=== PATIENT | female | born 1955 | race Caucasian/White ===

== ENCOUNTER 2018-09-20 17:45 | Emergency (ER) | payer BC ==
[~2018-09-20] VITALS: Wt 56.0 kg
[2018-09-20] MEDS ORDERED: ACET500C5 PO (18:59)
[2018-09-20] MEDS ORDERED: D-ME473S2 PO (18:59)
[2018-09-20] MEDS ORDERED: AMOX500C2 PO (18:59)
[2018-09-20] MEDS ORDERED: ACETAMINOPHEN 325 MG TAB PO ONE (19:00)
--- NOTE | 2018-09-20 19:01 | ERD ---
ER Documentation Chief Complaint Chief Complaint FEVER WITH BODY ACHES/COUGH/SOB X 2 DAYS HPI 63 female with complaints of fever and cough congestion for the last 3 days. Her was treated for bronchitis. She denies history of asthma, chest pain, vomiting, abdominal pain. ROS All systems reviewed and are negative except as per history of present illness. Medications Home Meds Active Scripts Dextromethorphan Hb-Promethazine Hcl* (Promethazine DM* Syrup) 473 Ml Syrup, 5 ML PO Q6 PRN for COUGH for 5 Days, ML Prov:RAFFY DELA CRUZ MD 09/20/18 Acetaminophen* (Tylophen*) 500 Mg Capsule, 1 CAP PO Q6H PRN for PAIN AND OR ELEVATED TEMP, #20 CAP Prov:RAFFY DELA CRUZ MD 09/20/18 Amoxicillin* (Amoxicillin*) 500 Mg Cap, 500 MG PO TID for 10 Days, CAP Prov:RAFYF DELA CRUZ MD 09/20/18 Allergies Allergies: Coded Allergies: azithromycin (Verified Adverse Reaction, Unknown, THROW UP , 01/06/18) PER PATIENT VOMITING AFTER TAKING RX PMhx/Soc History of Surgery: Yes (C SECTION X2) Anesthesia Reaction: No Hx Neurological Disorder: No Hx Respiratory Disorders: No Hx Cardiac Disorders: No Hx Psychiatric Problems: No Hx Miscellaneous Medical Probl: No Hx Alcohol Use: No Hx Substance Use: No Hx Tobacco Use: No Smoking Status: Never smoker FmHx Family History: No diabetes, No coronary disease, No other Physical Exam Vitals Vital Signs Date Temp Pulse Resp B/P (MAP) Pulse Ox O2 O2 Flow FiO2 Time Delivery Rate 09/20/18 100.7 96 18 143/73 100 Room Air 19:24 (96) 09/20/18 101.9 19:12 09/20/18 100.3 100 16 161/77 100 18:14 (105) Physical Exam Const: No acute distress Head: Atraumatic Eyes: Normal Conjunctiva ENT: Normal External Ears, Nose and Mouth. Right TM redness with decreased light reflex. Neck: Full range of motion. No meningismus. Resp: Clear to auscultation bilaterally. Coarse cough with rhonchi without rales, wheezing or retractions. Cardio: Regular rate and rhythm, no murmurs Abd: Soft, non tender, non distended. Normal bowel sounds Skin: No petechiae or rashes Back: No midline or flank tenderness Ext: No cyanosis, or edema Neur: Awake and alert Psych: Normal Mood and Affect Results 24 hrs Current Medications Medications Dose Sig/Leonides Start Time Status Last (Trade) Ordered Route PRN Stop Time Admin Dose Reason Admin 650 mg ONCE ONCE 09/20/18 DC 09/20/18 Acetaminophen PO 19:00 19:12 (Tylenol 09/20/18 19:01 Tab) Procedures/MDM Patient presents with URI symptoms and fever and body aches for last 3 days. She may have a acute viral URI although given the findings on ear exam we will treat with amoxicillin, promethazine DM, Tylenol, primary care follow-up and return precautions. She has no signs of hypoxemia, rest distress or signs of pneumonia on exam. The patient was stable with no new complaints during the ER course. Clinically, there is no current evidence to suggest meningitis, sepsis, acute abdomen, pneumonia, stroke, acute coronary syndrome, pulmonary embolism, aortic dissection or any other emergent condition appearing to require further evaluation or hospitalization. Patient counseled regarding my diagnostic impression and care plan. Prior to discharge all questions answered. Pt agrees with treatment plan and understands strict return precautions. Pt is instructed to follow up with primary care provider within 24-48 hours. Precautionary instructions provided including instructions to return to the ER if not improving or for any worsening or changing symptoms or concerns. Disclaimer: Inadvertent spelling and grammatical errors are likely due to EHR/dictation software use and do not reflect on the overall quality of patient care. Also, please note that the electronic time recorded on this note does not necessarily reflect the actual time of the patient encounter. Departure Diagnosis: Primary Impression: Otitis media Otitis media type: suppurative Chronicity: acute Laterality: right Recurrence: not specified as recurrent Spontaneous tympanic membrane rupture: without spontaneous rupture Qualified Codes: H66.001 - Acute suppurative otitis media without spontaneous rupture of ear drum, right ear Additional Impression: Upper respiratory infection URI type: unspecified URI Qualified Codes: J06.9 - Acute upper respiratory infection, unspecified Condition: Stable Patient Instructions: Bronchitis, Antiobiotic Treatment (Adult), Otitis Media, Abx Tx (Adult) Additional Instructions: Recheck for new or worsening symptoms with primary care doctor. RAFFY DELA CRUZ MD September 20, 2018 19:01
[2018-09-20 19:24] VITALS: BP 143/73; PULSE 96; RESP 18
== END 2018-09-20 19:28 | disposition home or self-care (01) ==
LOC: FTE 17:45
DX: H66.001 Acute suppurative otitis media without spontaneous rupture of ear drum, right ear (principal); J06.9 Acute upper respiratory infection, unspecified
CPT/HCPCS: Z7502; Z7610; 99283

== ENCOUNTER 2018-09-25 18:15 | Inpatient (IN) | payer BC ==
[~2018-09-25] VITALS: Ht 152.4 cm; Wt 49.8 kg
[~2018-09-25 18:15] MED LIST: ACET500C5 PO; AMOX500C2 PO; D-ME473S2 PO
[2018-09-25 18:22] VITALS: Ht 152.4 cm; Wt 49.8 kg
[2018-09-25] MEDS ORDERED: SODIUM CHLORIDE 0.9% 1L BAG IV* STA (18:36)
[2018-09-25] MEDS ORDERED: METHYLPREDNISOLONE 125 MG INJ IV STA (18:38)
[2018-09-25] MEDS ORDERED: ALBUTEROL 0.5% (NEB) 2.5 MG/0.5 ML AMP INH STA (18:38)
--- NOTE | 2018-09-25 18:42 | ERD ---
ER Documentation Chief Complaint Chief Complaint Dx Wednesday with Bronchitis and ear infection, getting worse on ABX HPI This is a 63-year-old woman brought in by family members for continued cough, right earache, fever despite using antibiotics as prescribed on Wednesday after being diagnosed with right otitis media and bronchitis. She states she has been using her antibiotics as prescribed without relief, she denies chest pain or shortness of breath, no calf or leg swelling, no headache or blurry vision, no complaints of neck pain or neck stiffness, no dysuria, no abdominal pain, no vomiting or diarrhea. Patient has right ear pain is nonradiating nonexertional and she denies hearing loss, denies bleeding from the right EAC ROS All systems reviewed and are negative except as per history of present illness. Medications Home Meds Active Scripts Dextromethorphan Hb-Promethazine Hcl* (Promethazine DM* Syrup) 473 Ml Syrup, 5 ML PO Q6 PRN for COUGH for 5 Days, ML Prov:RAFFY DELA CRUZ MD 09/20/18 Acetaminophen* (Tylophen*) 500 Mg Capsule, 1 CAP PO Q6H PRN for PAIN AND OR ELEVATED TEMP, #20 CAP Prov:RAFFY DELA CRUZ MD 09/20/18 Amoxicillin* (Amoxicillin*) 500 Mg Cap, 500 MG PO TID for 10 Days, CAP Prov:RAFFY DELA CRUZ MD 09/20/18 Allergies Allergies: Coded Allergies: azithromycin (Verified Adverse Reaction, Unknown, THROW UP , 01/06/18) PER PATIENT VOMITING AFTER TAKING RX PMhx/Soc History of Surgery: Yes (C SECTION X2) Anesthesia Reaction: No Hx Neurological Disorder: No Hx Respiratory Disorders: No Hx Cardiac Disorders: No Hx Psychiatric Problems: No Hx Miscellaneous Medical Probl: No Hx Alcohol Use: No Hx Substance Use: No Hx Tobacco Use: No FmHx Family History: No diabetes Physical Exam Vitals Vital Signs Date Temp Pulse Resp B/P (MAP) Pulse Ox O2 O2 Flow FiO2 Time Delivery Rate 09/25/18 102.6 19:03 09/25/18 103 20 93 21 19:00 09/25/18 140 29 120/61 96 Room Air 18:45 (80) 09/25/18 102.6 117 20 136/62 95 18:22 (86) Physical Exam GENERAL: Well-developed, well-nourished, well-hydrated, febrile HEENT: Moist mucous membranes, pink conjunctiva, no cervical spine tenderness or step-off deformities, no goiter, no jaundice or icterus, extraocular movements intact without pain. No submandibular induration, and no pharyngeal erythema NEURO: Alert and oriented 3, cranial nerves II through XII intact bilaterally, pupils equal round reactive to light, no focal deficits or facial asymmetry, sensation intact distally Strength 5/5 in upper and lower extremities bilaterally CARDIAC: Tachycardic and regular, no murmurs rubs or gallops LUNGS: Poor breath sounds bilaterally ABDOMEN: Soft nontender, no guarding, no rigidity, no rebound, no psoas sign no obturator sign. SKIN: Warm and dry to touch, no abrasions, contusions, or hematomas, no lacerations, no ecchymosis, no target lesions, and without ulcers EXTREMITIES: No clubbing cyanosis or edema, calves are bilaterally symmetrical, no Homans sign, no popliteal cord sign. Distal pulses equal and bilateral PSYCH: Normal affect without agitation or irritability Result Diagram: 09/25/18182809/25/181828 Results 24 hrs Laboratory Tests Test 09/25/18 18:29 09/25/18 18:31 09/25/18 18:43 09/25/18 18:56 White Blood Count 9.8 10^3/ul Red Blood Count 4.41 10^6/ul Hemoglobin 12.9 g/dl Hematocrit 38.3 % Mean Corpuscular 86.8 fl Volume Mean Corpuscular 29.3 pg Hemoglobin Mean Corpuscular 33.7 g/dl Hemoglobin Concen t Red Cell 12.7 % Distribution Width Platelet Count 343 10^3/UL Mean Platelet 9.9 fl Volume Immature 0.300 % Granulocytes % Neutrophils % 78.2 % Lymphocytes % 15.7 % Monocytes % 5.4 % Eosinophils % 0.0 % Basophils % 0.4 % Nucleated Red 0.0 /100WBC Blood Cells % Immature 0.030 10^3/ul Granulocytes # Neutrophils # 7.6 10^3/ul Lymphocytes # 1.5 10^3/ul Monocytes # 0.5 10^3/ul Eosinophils # 0.0 10^3/ul Basophils # 0.0 10^3/ul Nucleated Red 0.0 10^3/ul Blood Cells # Prothrombin Time 13.9 Sec Prothrombin Time 1.1 Ratio INR International 1.06 Normalized Ratio Activated 33.7 Sec Partial Thrombopl ast Time Sodium Level 137 mmol/L Potassium Level 3.8 mmol/L Chloride Level 101 mmol/L Carbon Dioxide 26 mmol/L Level Anion Gap 10 Blood Urea 9 mg/dl Nitrogen Creatinine 0.55 mg/dl Est Glomerular > 60 mL/min Filtrat Rate mL/min Glucose Level 198 mg/dl Calcium Level 8.8 mg/dl Total Bilirubin 0.8 mg/dl Direct Bilirubin 0.00 mg/dl Indirect 0.8 mg/dl Bilirubin Aspartate Amino 38 IU/L Transf (AST/SGOT) Alanine 23 IU/L Aminotransferase (ALT/SGPT) Alkaline 70 IU/L Phosphatase Troponin I < 0.012 ng/ml Total Protein 7.8 g/dl Albumin 4.0 g/dl Globulin 3.80 g/dl Albumin/Globulin 1.05 Ratio Lipase 48 U/L Urine Color YELLOW Urine Clarity CLEAR Urine pH 7.0 Urine Specific 1.011 [place] Urine Ketones TRACE mg/dL Urine Nitrite NEGATIVE mg/dL Urine Bilirubin NEGATIVE mg/dL Urine NEGATIVE mg/dL Urobilinogen Urine Leukocyte NEGATIVE Theo/ul Esterase Urine Microscopic 2 /HPF RBC Urine Microscopic 0 /HPF WBC Urine Hemoglobin 1+ mg/dL Urine Glucose NEGATIVE mg/dL Urine Total NEGATIVE mg/dl Protein POC Venous 1.9 mmol/L Lactate Lactic Acid Level 2.1 mmol/L Current Medications Medications Dose Sig/Leonides Start Time Status Last (Trade) Ordered Route PRN Stop Time Admin Dose Reason Admin Sodium 3,000 ml BOLUS OVER 2 09/25/18 DC 09/25/18 Chloride HOURS STAT 18:36 19:02 (NS) IV* 09/25/18 18:42 150 ml @ ONCE ONCE 09/25/18 DC 09/25/18 Levofloxacin/ 100 mls/hr IVPB 19:00 19:02 Dextrose 09/25/18 20:29 Ibuprofen 600 mg ONCE ONCE 09/25/18 DC 09/25/18 (Motrin) PO 19:00 19:03 09/25/18 19:01 Albuterol 10 mg ONCE STAT 09/25/18 DC 09/25/18 (Proventil INH 18:38 18:55 0.5% (Neb)) 09/25/18 18:42 125 mg ONCE STAT 09/25/18 DC 09/25/18 Methylprednis IV 18:38 19:02 olone Sodium 09/25/18 18:42 Succinate (Solu-Medrol) Procedures/MDM IV line was established patient was placed on needle control cheniller rhythm strip revealed a sinus tachycardia at 120 bpm with upright P and T waves. Patient was febrile, blood and urine cultures have been ordered results are pending I will follow-up. I administered 3 L normal saline IV, ibuprofen 600 mg p.o., levofloxacin 750 mg IV, albuterol 10 mg via nebulizer, methylprednisolone 125 mg IV x1 EKG performed, read by me revealed a sinus tachycardia at 110 bpm, normal axis, narrow QRS complex, no concerning ST elevations or depressions noted One AP view of the chest performed, read by me reveals no acute infiltrates, normal mediastinum, sharp costophrenic and cardiac borders, no air under the diaphragm. Otherwise unremarkable chest x-ray. CBC and electrolytes are normal, liver function test normal, troponin negative, urinalysis negative for infection. Patient's infectious symptoms have not stabilized and the patient is at risk of rapid decompensation. The patient will be admitted for careful hydration, antibiotic therapy, and infectious source control. SEVERE SEPSIS CRITERIA: Infectious source: Unspecified End organ damage indicated by: No SEPSIS MANAGEMENT Time of recognition of sepsis: Upon arrival. Time of recognition of severe sepsis: No severe sepsis at this time. Time of recognition of septic shock: No septic shock at this time. 3 HOUR BUNDLE Blood cultures x 2 before broad-spectrum antibiotics: Yes 30 ml/kg NS bolus completed Initial lactate 1.9 Repeat lactate 2.1 SEPTIC SHOCK ASSESSMENT: No lactic acid > 4.0 No persistent hypotension (SBP < 90 or 40 mmHg drop, MAP < 65) despite 30 mL/kg IV fluid bolus VOLUME REASSESSMENT FOR SEPTIC SHOCK: Reevaluation Time: 2016 Temp 99 F, BP 140/80, HR 120 bpm, RR 20 breaths/min, pulse ox 94% Heart tachycardic and regular Lungs no crackles Skin warm & dry Cap Refill less than 2 seconds Peripheral pulses radially present PERSISTENT HYPOTENSION TREATMENT: Comfort care no Central line not Required Vasopressor started not required I considered further perfusion assessment with CVP measurement, SCVO2, bedside ultrasound volume assessment, passive leg raise, trial of further fluid bolus. And proceeded with 30 ml/kg fluid bolus of NSS, broad spectrum antibiotics, and admission. CRITICAL CARE: Critical care time 45 minutes, this was time separate from other billable proce dures. Emergent fluid management while maintaining close respiratory support. Provision of immediate and broad-spectrum antibiotic therapy. Simultaneous assessment for possible sources in order to direct targeted therapy. Consideration for invasive and chemical support to prevent cardiopulmonary collapse. Critical care time is independent of procedures performed. Accepting Care Team: Current data and ongoing care discussed. Time: Time of admission Primary Provider: Hospitalist Consulting: Pulmonology Outstanding Data: none Departure Diagnosis: Primary Impression: Upper respiratory infection URI type: unspecified URI Qualified Codes: J06.9 - Acute upper respiratory infection, unspecified Additional Impressions: Sepsis Sepsis type: sepsis due to unspecified organism Qualified Codes: A41.9 - Sepsis, unspecified organism Reactive airway disease Asthma severity: moderate Asthma persistence: persistent Asthma compl ication type: with acute exacerbation Qualified Codes: J45.41 - Moderate persistent asthma with (acute) exacerbation Condition: SANJUANA Hicks MD September 25, 2018 18:42
[2018-09-25] MEDS ORDERED: LEVOFLOXACIN 750MG/D5W (PMX) 150 ML IVPB ONE (19:00)
[2018-09-25] MEDS ORDERED: IBUPROFEN 600 MG TAB PO ONE (19:00)
[2018-09-25 21:00] VITALS: BP 107/59; PULSE 112; RESP 18
[2018-09-25 21:03] VITALS: PULSE 114
[2018-09-25] MEDS ORDERED: ONDANSETRON 4 MG INJ IV PRN (22:00)
[2018-09-25] MEDS ORDERED: LEVALBUTEROL (NEB) 0.63 MG/3 ML AMP HHN PRN (22:00)
[2018-09-25] MEDS ORDERED: NACL 0.9% 3 ML SYG IV SCH (22:00)
[2018-09-25] MEDS ORDERED: IPRATROPIUM (NEB) 0.5 MG/2.5 ML AMP NEB PRN (22:00)
--- NOTE | 2018-09-25 22:06 | HP ---
Date/Time of Note Date/Time of Note DATE: 09/25/18 TIME: 22:06 Assessment/Plan VTE Prophylaxis Pharmacological prophylaxis: heparin Lines/Catheters IV Catheter Type (from Nrsg): Saline Lock Assessment/Plan Assessment/Plan 63-year-old female with no significant past medical history brought to the ER for bilateral ear pain, fever and cough and found to be septic, as evidenced by fever, tachycardia, lactic acidosis: Secondary to URI and likely otitis media PLAN -Patient has been taking amoxicillin for the past few days without improvement -Broad-spectrum IV antibiotic -Follow-up culture results Result Diagram: 09/25/18 1829 09/25/18 1829 Results 24hrs Laboratory Tests Test 09/25/18 18:29 09/25/18 18:31 09/25/18 18:43 09/25/18 18:56 White Blood Count 9.8 # Red Blood Count 4.41 Hemoglobin 12.9 Hematocrit 38.3 Mean Corpuscular 86.8 Volume Mean Corpuscular 29.3 Hemoglobin Mean Corpuscular 33.7 Hemoglobin Concent Red Cell 12.7 Distribution Width Platelet Count 343 # Mean Platelet Volume 9.9 Immature 0.300 Granulocytes % Neutrophils % 78.2 H Lymphocytes % 15.7 Monocytes % 5.4 Eosinophils % 0.0 Basophils % 0.4 Nucleated Red Blood 0.0 Cells % Immature 0.030 Granulocytes # Neutrophils # 7.6 H Lymphocytes # 1.5 Monocytes # 0.5 Eosinophils # 0.0 Basophils # 0.0 Nucleated Red Blood 0.0 Cells # Prothrombin Time 13.9 Prothrombin Time 1.1 Ratio INR International 1.06 Normalized Ratio Activated 33.7 Partial Thromboplast Time Sodium Level 137 Potassium Level 3.8 Chloride Level 101 Carbon Dioxide Level 26 Anion Gap 10 Blood Urea Nitrogen 9 Creatinine 0.55 Est Glomerular > 60 Filtrat Rate mL/min Glucose Level 198 Calcium Level 8.8 Total Bilirubin 0.8 Direct Bilirubin 0.00 Indirect Bilirubin 0.8 Aspartate Amino 38 Transf (AST/SGOT) Alanine 23 Aminotransferase (AL T/SGPT) Alkaline Phosphatase 70 Troponin I < 0.012 Total Protein 7.8 Albumin 4.0 Globulin 3.80 H Albumin/Globulin 1.05 Ratio Lipase 48 Urine Color YELLOW Urine Clarity CLEAR Urine pH 7.0 Urine Specific 1.011 [place] Urine Ketones TRACE A Urine Nitrite NEGATIVE Urine Bilirubin NEGATIVE Urine Urobilinogen NEGATIVE Urine Leukocyte NEGATIVE Esterase Urine Microscopic 2 RBC Urine Microscopic 0 WBC Urine Hemoglobin 1+ H Urine Glucose NEGATIVE Urine Total Protein NEGATIVE POC Venous Lactate 1.9 Lactic Acid Level 2.1 *H Test 09/25/18 20:36 Lactic Acid Level 1.9 HPI/ROS Admit Date/Time Admit Date/Time September 25, 2018 at 19:14 Hx of Present Illness This is a 63-year-old female with no significant past medical history who presents the ER complaining of bilateral ear pain, fever and cough. Patient was a started with amoxicillin by her PCP for ear infection and was given dextromethorphan for cough. Her symptoms persist and she had a fever of 102 at home and as such as she was brought to the ER for further evaluation. Mom presents the ER, she had a temp of 1.6, heart rate has been as high as 140. Initial lactic acid 2.1, repeat 1.6. UA negative for UTI. Chest x-ray unremarkable PMH/Family/Social Past Medical History Medical History: other (See HPI) Coded Allergies: Penicillins (Verified Allergy, Unknown, rash, 02/28/17) Past Surgical History Past Surgical Hx: other (See HPI) Family History Significant Family History: no pertinent family hx Social History Alcohol Use: none Smoking Status: Never smoker Drug Use: none Exam Constitutional: other (No acute distress) Head: normocephalic Eyes: PERRL Respiratory: normal air movement Cardiovascular: regular rate and rhythm Gastrointestinal: soft Extremities: edema Medications Current Medications Sodium Chloride 1,000 ml @ 100 mls/hr Q10H IV ; Start 09/25/18 at 21:41 IV Flush (NS 3 ml) 3 ml PER PROTOCOL IV ; Start 09/25/18 at 22:00 Ondansetron HCl (Zofran Inj) 4 mg Q6H PRN IV NAUSEA/VOMITING; Start 09/25/18 at 22:00 Acetaminophen (Tylenol Tab) 650 mg Q6H PRN PO .PAIN 1-3 OR TEMP; Start 09/25/18 at 22:00 Heparin Sodium (Porcine) (Heparin (5000 Units/1ml)) 5,000 unit Q12 SC ; Start 09/26/18 at 09:00 Ipratropium [place] (Atrovent 0.02% (Neb)) 0.5 mg Q2H RESP THERAPY PRN NEB SHORTNESS OF BREATH; Start 09/25/18 at 22:00 Promethazine HCl/ Dextromethorphan (Phenergan-Dm) 5 ml Q6H PRN PO COUGH; Start 09/25/18 at 23:00 Levalbuterol (Xopenex Neb) 0.63 mg Q2H RESP THERAPY PRN HHN sob/wheezing; Start 09/25/18 at 22:00 Coded Allergies: azithromycin (Verified Adverse Reaction, Unknown, THROW UP , 01/06/18) PER PATIENT VOMITING AFTER TAKING RX Social History Smoking Status: Never smoker Exam/Review of Systems Vital Signs Vitals Vital Signs Date Temp Pulse Resp B/P (MAP) Pulse Ox O2 O2 Flow FiO2 Time Delivery Rate 09/25/18 98.9 112 18 107/59 94 Room Air 21:00 (75) 09/25/18 21 19:00 WILY SHEEHAN MD September 25, 2018 22:06
[2018-09-25] MEDS ORDERED: PROMETHAZINE/DM (CUP) PO PRN (23:00)
[2018-09-25] MEDS: SOD CHLORIDE 0.9% 1,000 ML IV SCH (23:19)
[2018-09-26] VITALS (10 sets, daily range): BP systolic 107–143; BP diastolic 57–69; PULSE 70–103; RESP 16–18
[2018-09-26] MEDS: SOD CHLORIDE 0.9% 1,000 ML IV SCH ×3 (05:33→17:26)
[2018-09-26] MEDS: LEVOFLOXACIN 750MG/D5W (PMX) 150 ML IVPB SCH (06:42)
[2018-09-26] MEDS: HEPARIN 5,000 UNIT/1 ML VIAL SC SCH ×2 (08:36→20:49)
--- NOTE | 2018-09-26 11:30 | PN ---
Date/Time of Note Date/Time of Note DATE: 09/26/18 TIME: 11:30 Assessment/Plan VTE Prophylaxis Risk score (from Ns)>0 risk: 3 [place] [facility] [place] Pharmacological prophylaxis: NA/contraindicated Pharm contraindication: low risk/ambulating Lines/Catheters IV Catheter Type (from [facility]): Peripheral IV Urinary Cath still in place: No Assessment/Plan Hospital Course SUBJECTIVE: Doing in bed, having nonproductive cough. No fevers. Ear pain improved. OBJECTIVE: Vital signs-see below PHYSICAL EXAM: Constitutional: Adequately built,not in acute distress. HEENT: Head atraumatic and normocephalic. Eyes: Extraocular muscles intact. Anicteric sclerae. Pupils equal bilaterally, reactive to light. NECK: Supple without lymph node. CHEST: Clear and good breath sounds equally. No wheezing. No rhonchi. HEART: S1, S2. Regular rate and rhythm. ABDOMEN: Soft/non tender with no rebound tenderness. Bowel sounds were present. EXTREMITIES: No cyanosis, clubbing or edema. NEUROLOGIC: Alert and oriented x3. No focal deficit. No sensory deficit. PSYCHOSOCIAL: No signs of depression. INTEGUMENTARY: No open wounds. ASSESSMENT AND PLAN: 63-year-old female with no past medical history, admitted with 2 weeks duration of right sided ear pain, cough started 14 hours air trip back from [place].. Upper respiratory infection -Improving -Add cough medications -Continue antibiotic with de-escalation likely in a.m. Transient ear barotrauma most likely secondary to airplane pressure changes -No hearing loss/external/internal ear canal with no evidence of erythema, intact tympanic membrane. -Her symptoms almost resolving -Monitor -Recommend ENT follow-up if symptoms recurs. Status post sepsis likely secondary to upper respiratory infection -We will de-escalate antibiotics in a.m. DVT prophylaxis: SCDs Disposition: Overall, patient with improvement in symptoms. Most likely she can be discharged in a.m. with outpatient follow-up. Patient was seen in collaboration with Dr. Turner. Result Diagram: 09/26/18 0540 09/26/18 0540 Results 24hrs Laboratory Tests Test 09/25/18 18:29 09/25/18 18:31 09/25/18 18:43 09/25/18 18:56 White Blood Count 9.8 # Red Blood Count 4.41 Hemoglobin 12.9 Hematocrit 38.3 Mean Corpuscular 86.8 Volume Mean Corpuscular 29.3 Hemoglobin Mean Corpuscular 33.7 Hemoglobin Concent Red Cell 12.7 Distribution Width Platelet Count 343 # Mean Platelet Volume 9.9 Immature 0.300 Granulocytes % Neutrophils % 78.2 H Lymphocytes % 15.7 Monocytes % 5.4 Eosinophils % 0.0 Basophils % 0.4 Nucleated Red Blood 0.0 Cells % Immature 0.030 Granulocytes # Neutrophils # 7.6 H Lymphocytes # 1.5 Monocytes # 0.5 Eosinophils # 0.0 Basophils # 0.0 Nucleated Red Blood 0.0 Cells # Prothrombin Time 13.9 Prothrombin Time 1.1 Ratio INR International 1.06 Normalized Ratio Activated 33.7 Partial Thromboplast Time Sodium Level 137 Potassium Level 3.8 Chloride Level 101 Carbon Dioxide Level 26 Anion Gap 10 Blood Urea Nitrogen 9 Creatinine 0.55 Est Glomerular > 60 Filtrat Rate mL/min Glucose Level 198 Calcium Level 8.8 Total Bilirubin 0.8 Direct Bilirubin 0.00 Indirect Bilirubin 0.8 Aspartate Amino 38 Transf (AST/SGOT) Alanine 23 Aminotransferase (AL T/SGPT) Alkaline Phosphatase 70 Troponin I < 0.012 Total Protein 7.8 Albumin 4.0 Globulin 3.80 H Albumin/Globulin 1.05 Ratio Lipase 48 Urine Color YELLOW Urine Clarity CLEAR Urine pH 7.0 Urine Specific 1.011 [place] Urine Ketones TRACE A Urine Nitrite NEGATIVE Urine Bilirubin NEGATIVE Urine Urobilinogen NEGATIVE Urine Leukocyte NEGATIVE Esterase Urine Microscopic 2 RBC Urine Microscopic 0 WBC Urine Hemoglobin 1+ H Urine Glucose NEGATIVE Urine Total Protein NEGATIVE POC Venous Lactate 1.9 Lactic Acid Level 2.1 *H Test 09/25/18 20:36 09/25/18 22:21 09/26/18 05:40 Lactic Acid Level 1.9 1.9 White Blood Count 7.4 # Red Blood Count 4.24 Hemoglobin 12.3 Hematocrit 37.9 Mean Corpuscular 89.4 Volume Mean Corpuscular 29.0 Hemoglobin Mean Corpuscular 32.5 Hemoglobin Concent Red Cell 12.7 Distribution Width Platelet Count 297 Mean Platelet Volume 9.9 Immature 0.500 H Granulocytes % Neutrophils % Segmented 91 H Neutrophils % (Manual) Band Neutrophils % 1 (Manual) Lymphocytes % Lymphocytes % 7 L (Manual) Monocytes % Monocytes % (Manual) 1 Eosinophils % Basophils % Nucleated Red Blood 0.0 Cells % Immature 0.040 H Granulocytes # Neutrophils # Neutrophils # 6.7 (Manual) Band Neutrophils # 0.0 Lymphocytes (Manual) 0.5 L Lymphocytes # Monocytes # Monocytes # (Manual) 0.0 L Eosinophils # Basophils # Nucleated Red Blood Cells # Platelet Estimate NORMAL Polychromasia 1+ Anisocytosis 1+ Microcytosis 1+ Sodium Level 143 Potassium Level 4.0 Chloride Level 114 H Carbon Dioxide Level 23 Anion Gap 6 Blood Urea Nitrogen 7 Creatinine 0.42 L Est Glomerular > 60 Filtrat Rate mL/min Glucose Level 162 Calcium Level 8.5 Magnesium Level 2.3 Total Bilirubin 0.3 Direct Bilirubin 0.00 Indirect Bilirubin 0.3 Aspartate Amino 29 Transf (AST/SGOT) Alanine 29 Aminotransferase (AL T/SGPT) Alkaline Phosphatase 71 Total Protein 6.1 # Albumin 3.1 L Globulin 3.00 Albumin/Globulin 1.03 Ratio Exam/Review of Systems Exam Vitals Vital Signs Date Temp Pulse Resp B/P (MAP) Pulse Ox O2 O2 Flow FiO2 Time Delivery Rate 09/26/18 98.2 84 18 116/58 97 Room Air 11:08 (77) 09/25/18 21 19:00 Intake and Output 09/25/18 09/25/18 09/26/18 1515:00 23:00 07:00 IntakeIntake Total 60 ml BalanceBalance 60 ml Results Results 24hrs Laboratory Tests Test 09/25/18 18:29 09/25/18 18:31 09/25/18 18:43 09/25/18 18:56 White Blood Count 9.8 # Red Blood Count 4.41 Hemoglobin 12.9 Hematocrit 38.3 Mean Corpuscular 86.8 Volume Mean Corpuscular 29.3 Hemoglobin Mean Corpuscular 33.7 Hemoglobin Concent Red Cell 12.7 Distribution Width Platelet Count 343 # Mean Platelet Volume 9.9 Immature 0.300 Granulocytes % Neutrophils % 78.2 H Lymphocytes % 15.7 Monocytes % 5.4 Eosinophils % 0.0 Basophils % 0.4 Nucleated Red Blood 0.0 Cells % Immature 0.030 Granulocytes # Neutrophils # 7.6 H Lymphocytes # 1.5 Monocytes # 0.5 Eosinophils # 0.0 Basophils # 0.0 Nucleated Red Blood 0.0 Cells # Prothrombin Time 13.9 Prothrombin Time 1.1 Ratio INR International 1.06 Normalized Ratio Activated 33.7 Partial Thromboplast Time Sodium Level 137 Potassium Level 3.8 Chloride Level 101 Carbon Dioxide Level 26 Anion Gap 10 Blood Urea Nitrogen 9 Creatinine 0.55 Est Glomerular > 60 Filtrat Rate mL/min Glucose Level 198 Calcium Level 8.8 Total Bilirubin 0.8 Direct Bilirubin 0.00 Indirect Bilirubin 0.8 Aspartate Amino 38 Transf (AST/SGOT) Alanine 23 Aminotransferase (AL T/SGPT) Alkaline Phosphatase 70 Troponin I < 0.012 Total Protein 7.8 Albumin 4.0 Globulin 3.80 H Albumin/Globulin 1.05 Ratio Lipase 48 Urine Color YELLOW Urine Clarity CLEAR Urine pH 7.0 Urine Specific 1.011 [place] Urine Ketones TRACE A Urine Nitrite NEGATIVE Urine Bilirubin NEGATIVE Urine Urobilinogen NEGATIVE Urine Leukocyte NEGATIVE Esterase Urine Microscopic 2 RBC Urine Microscopic 0 WBC Urine Hemoglobin 1+ H Urine Glucose NEGATIVE Urine Total Protein NEGATIVE POC Venous Lactate 1.9 Lactic Acid Level 2.1 *H Test 09/25/18 20:36 09/25/18 22:21 09/26/18 05:40 Lactic Acid Level 1.9 1.9 White Blood Count 7.4 # Red Blood Count 4.24 Hemoglobin 12.3 Hematocrit 37.9 Mean Corpuscular 89.4 Volume Mean Corpuscular 29.0 Hemoglobin Mean Corpuscular 32.5 Hemoglobin Concent Red Cell 12.7 Distribution Width Platelet Count 297 Mean Platelet Volume 9.9 Immature 0.500 H Granulocytes % Neutrophils % Segmented 91 H Neutrophils % (Manual) Band Neutrophils % 1 (Manual) Lymphocytes % Lymphocytes % 7 L (Manual) Monocytes % Monocytes % (Manual) 1 Eosinophils % Basophils % Nucleated Red Blood 0.0 Cells % Immature 0.040 H Granulocytes # Neutrophils # Neutrophils # 6.7 (Manual) Band Neutrophils # 0.0 Lymphocytes (Manual) 0.5 L Lymphocytes # Monocytes # Monocytes # (Manual) 0.0 L Eosinophils # Basophils # Nucleated Red Blood Cells # Platelet Estimate NORMAL Polychromasia 1+ Anisocytosis 1+ Microcytosis 1+ Sodium Level 143 Potassium Level 4.0 Chloride Level 114 H Carbon Dioxide Level 23 Anion Gap 6 Blood Urea Nitrogen 7 Creatinine 0.42 L Est Glomerular > 60 Filtrat Rate mL/min Glucose Level 162 Calcium Level 8.5 Magnesium Level 2.3 Total Bilirubin 0.3 Direct Bilirubin 0.00 Indirect Bilirubin 0.3 Aspartate Amino 29 Transf (AST/SGOT) Alanine 29 Aminotransferase (AL T/SGPT) Alkaline Phosphatase 71 Total Protein 6.1 # Albumin 3.1 L Globulin 3.00 Albumin/Globulin 1.03 Ratio Medications Medication Current Medications Sodium Chloride 1,000 ml @ 100 mls/hr Q10H IV Last administered on 09/26/18at 05:39; Admin Dose 100 MLS/HR; Start 09/25/18 at 21:41 IV Flush (NS 3 ml) 3 ml PER PROTOCOL IV ; Start 09/25/18 at 22:00 Ondansetron HCl (Zofran Inj) 4 mg Q6H PRN IV NAUSEA/VOMITING; Start 09/25/18 at 22:00 Acetaminophen (Tylenol Tab) 650 mg Q6H PRN PO .PAIN 1-3 OR TEMP; Start 09/25/18 at 22:00 Heparin Sodium (Porcine) (Heparin (5000 Units/1ml)) 5,000 unit Q12 SC Last administered on 09/26/18at 08:36; Admin Dose 5,000 UNIT; Start 09/26/18 at 09:00 Ipratropium [place] (Atrovent 0.02% (Neb)) 0.5 mg Q2H RESP THERAPY PRN NEB SHORTNESS OF BREATH; Start 09/25/18 at 22:00 Promethazine HCl/ Dextromethorphan (Phenergan-Dm) 5 ml Q6H PRN PO COUGH; Start 09/25/18 at 23:00 Levalbuterol (Xopenex Neb) 0.63 mg Q2H RESP THERAPY PRN HHN sob/wheezing; Start 09/25/18 at 22:00 Levofloxacin/ Dextrose 150 ml @ 100 mls/hr Q24H IVPB Last administered on 09/26/18at 06:42; Admin Dose 100 MLS/HR; Start 09/26/18 at 06:30 ROSA M WELLS NP September 26, 2018 11:30
[2018-09-26] MEDS: GUAIFENESIN/DM (SR) TAB PO SCH ×2 (12:56→20:41)
[2018-09-27] VITALS (12 sets, daily range): BP systolic 111–138; BP diastolic 56–92; PULSE 62–113; RESP 18–20
[2018-09-27] MEDS: LEVOFLOXACIN 750MG/D5W (PMX) 150 ML IVPB SCH (06:09)
[2018-09-27] MEDS: SOD CHLORIDE 0.9% 1,000 ML IV SCH ×3 (06:10→22:58)
[2018-09-27] MEDS: GUAIFENESIN/DM (SR) TAB PO SCH ×2 (08:36→20:57)
[2018-09-27] MEDS: ACETAMINOPHEN 325 MG TAB PO PRN (08:36)
[2018-09-27] MEDS: HEPARIN 5,000 UNIT/1 ML VIAL SC SCH ×2 (08:37→21:10)
[2018-09-27] MEDS ORDERED: VANCOMYCIN IV PER PHARMACY XX SCH (09:30)
--- NOTE | 2018-09-27 09:57 | PN ---
Date/Time of Note Date/Time of Note DATE: 09/27/18 TIME: 09:56 Assessment/Plan VTE Prophylaxis Risk score (from Ns)>0 risk: 3 SCD applied (from Ns): Yes Pharmacological prophylaxis: NA/contraindicated Pharm contraindication: low risk/ambulating Lines/Catheters IV C[facility] Type (from [facility]): Peripheral IV Urinary Cath still in place: No Assessment/Plan Hospital Course SUBJECTIVE: No acute overnight episodes. Overall doing well. OBJECTIVE: Vital signs-see below PHYSICAL EXAM: Constitutional: Adequately built,not in acute distress. HEENT: Head atraumatic and normocephalic. Eyes: Extraocular muscles intact. Anicteric sclerae. Pupils equal bilaterally, reactive to light. NECK: Supple without lymph node. CHEST: Clear and good breath sounds equally. No wheezing. No rhonchi. HEART: S1, S2. Regular rate and rhythm. ABDOMEN: Soft/non tender with no rebound tenderness. Bowel sounds were present. EXTREMITIES: No cyanosis, clubbing or edema. NEUROLOGIC: Alert and oriented x3. No focal deficit. No sensory deficit. PSYCHOSOCIAL: No signs of depression. INTEGUMENTARY: No open wounds. ASSESSMENT AND PLAN: 63-year-old female with no past medical history, admitted with 2 weeks duration of right sided ear pain, cough started 14 hours air trip back from [place].. Upper respiratory infection -Symptoms improving gradually -Continue breathing treatments, cough medications, antibiotic Transient ear barotrauma most likely secondary to airplane pressure changes -No hearing loss/external/internal ear canal with no evidence of erythema, intact tympanic membrane. -Her symptoms almost resolving -Monitor -Recommend ENT follow-up if symptoms recurs. Status post sepsis likely secondary to upper respiratory infection --BC 1/2 growing staph. Add vancomycin to regimen and follow final cultures. -Meanwhile, repeat blood cultures DVT prophylaxis: SCDs Disposition: Overall, patient with improvement in symptoms. Blood culture is growing staph. Will add vancomycin and will await for final cultures prior to discharge. Patient was seen in collaboration with Dr. Turner. Result Diagram: 09/26/1840 09/26/18 0540 Exam/Review of Systems Exam Vitals Vital Signs Date Temp Pulse Resp B/P (MAP) Pulse Ox O2 O2 Flow FiO2 Time Delivery Rate 09/27/18 75 08:32 09/27/18 98.0 20 111/56 97 08:27 (74) 09/27/18 21 02:15 09/26/18 Room Air 11:08 Intake and Output 09/26/18 09/26/18 09/27/18 1515:00 23:00 07:00 IntakeIntake Total 960 ml BalanceBalance 960 ml Medications Medication Current Medications Sodium Chloride 1,000 ml @ 100 mls/hr Q10H IV Last administered on 09/27/18at 06:10; Admin Dose 100 MLS/HR; Start 09/25/18 at 21:41 IV Flush (NS 3 ml) 3 ml PER PROTOCOL IV ; Start 09/25/18 at 22:00 Ondansetron HCl (Zofran Inj) 4 mg Q6H PRN IV NAUSEA/VOMITING; Start 09/25/18 at 22:00 Acetaminophen (Tylenol Tab) 650 mg Q6H PRN PO .PAIN 1-3 OR TEMP Last administered on 09/27/18at 08:36; Admin Dose 650 MG; Start 09/25/18 at 22:00 Heparin Sodium (Porcine) (Heparin (5000 Units/1ml)) 5,000 unit Q12 SC Last administered on 09/27/18at 08:37; Admin Dose 5,000 UNIT; Start 09/26/18 at 09:00 Ipratropium [place] (Atrovent 0.02% (Neb)) 0.5 mg Q2H RESP THERAPY PRN NEB SHORTNESS OF BREATH; Start 09/25/18 at 22:00 Promethazine HCl/ Dextromethorphan (Phenergan-Dm) 5 ml Q6H PRN PO COUGH; Start 09/25/18 at 23:00 Levalbuterol (Xopenex Neb) 0.63 mg Q2H RESP THERAPY PRN HHN sob/wheezing; Start 09/25/18 at 22:00 Levofloxacin/ Dextrose 150 ml @ 100 mls/hr Q24H IVPB Last administered on 09/27/18at 06:09; Admin Dose 100 MLS/HR; Start 09/26/18 at 06:30 Guaifenesin/ Dextromethorphan (Mucinex Dm) 1 tab BID PO Last administered on 09/27/18 08:36; Admin Dose 1 TAB; Start 09/26/18 at 11:30 Vancomycin HCl (Vanco Iv Per Pharmacy) VANCOMYCIN PER PHARMACY PER PROTOCOL XX ; Start 09/27/18 at 09:30 ROSA M WELLS NP September 27, 2018 09:57
[2018-09-27] MEDS ORDERED: VANCOMYCIN 1 GM 250 ML IVPB SCH (11:30)
[2018-09-27] MEDS: PROMETHAZINE/DM (CUP) PO PRN (15:05)
[2018-09-27] MEDS: VANCOMYCIN 500 MG (PMX) 100 ML IVPB SCH (22:58)
[2018-09-28] VITALS (10 sets, daily range): BP systolic 101–143; BP diastolic 59–70; PULSE 67–87; RESP 18–20
[2018-09-28] MEDS: LEVOFLOXACIN 750MG/D5W (PMX) 150 ML IVPB SCH (05:52)
[2018-09-28] MEDS: GUAIFENESIN/DM (SR) TAB PO SCH (08:37)
[2018-09-28] MEDS: ACETAMINOPHEN 325 MG TAB PO PRN (08:38)
[2018-09-28] MEDS: PROMETHAZINE/DM (CUP) PO PRN (08:38)
[2018-09-28] MEDS: HEPARIN 5,000 UNIT/1 ML VIAL SC SCH (08:49)
[2018-09-28] MEDS: SOD CHLORIDE 0.9% 1,000 ML IV SCH (09:41)
[2018-09-28] MEDS ORDERED: ONDANSETRON 4 MG INJ IV STA (10:15)
--- NOTE | 2018-09-28 10:18 | PDOCDIS ---
Discharge Instructions CONDITION [id number] Patient Condition: [id number] Stable HOME CARE INSTRUCTIONS: [id number] Diet Instructions: [id number] Regular FOLLOW UP/APPOINTMENTS Follow-up Plan Follow up with primary care physician in 1 week. ROSA M WELLS NP September 28, 2018 10:18
[2018-09-28] MEDS ORDERED: PHEN177L2 PO (10:23)
[2018-09-28] MEDS ORDERED: BENZ-5 PO (10:23)
[2018-09-28] MEDS ORDERED: AMOX1TAB10 PO (10:23)
[2018-09-28] MEDS ORDERED: ONDA4TAB8 PO (10:23)
[2018-09-28] MEDS ORDERED: METOCLOPRAMIDE 10 MG INJ IV ONE (10:30)
[2018-09-28] MEDS: BENZONATATE 100 MG CAP PO SCH ×2 (10:33→14:18)
--- NOTE | 2018-09-28 10:36 | DS ---
Date/Time of Note Date/Time of Note DATE: 09/28/18 TIME: 10:33 Discharge Summary Admission/Discharge Info Admit Date/Time September 25, 2018 at 19:14 Discharge Date/Time Discharge Diagnosis Upper respiratory infection Transient ear barotrauma most likely secondary to airplane pressure changes Status post sepsis likely secondary to upper respiratory infection Patient Condition: Stable Procedures Chest Xray IMPRESSION: 1. Atherosclerosis. 2. Otherwise unremarkable chest radiograph. RPTAT: QQ .Raffy Anaya MD, Date Time Electronically viewed and signed by .Raffy Anaya MD, MD on 09/25/2018 18:49 .R/ CC: SANJUANA MCCOLLUM MD [phone] Hospital Course 63-year-old female with no past medical history, admitted with 2 weeks duration of right sided ear pain, cough started 14 hours air trip back from [place].. Patient was found to have sepsis. Her blood cultures were negative. Patient continued to have cough and congestion and most likely she has had an upper res piratory infection with her travel. She was also noted with transient ear barotrauma most likely secondary to airplane pressure changes. This resolved spontaneously. There was no hearing loss. There was no evidence of ear infection. She did not need any inpatient ENT follow-up. Sepsis resolved. Patient's blood cultures negative although 1 out of 2 sets showed coagulase-negative staph which is more likely contaminant. Patient continued to have cough but is improved. At this time, patient with no fevers, chills, shortness of breath and does not require any supplemental oxygen. She is very eager to be discharged home. Patient is stable for outpatient follow-up Approximately 60-minute was spent on coordinating the discharge on this patient. Patient was seen in collaboration with Dr. Turner. Home Meds Active Scripts Ondansetron Hcl* (Zofran*) 4 Mg Tablet, 4 MG PO Q6H PRN for NAUSEA AND OR VOMITING, #30 TAB Prov:ROSA M WELLS [facility] 09/28/18 Amoxicillin/Potassium Clav (Amox-Clav 875-125 mg Tablet) 875-125 mg Tab, 1 TAB PO BID, #20 TAB Prov:ROSA M WELLS NP 09/28/18 Phenylephrine/Dm/Acetaminop/Gg (Mucinex Qpzl-[id number] Liquid) 177 Ml Liquid, 5 ML PO Q12, #1 BOTTLE Prov:ROSA M WELLS NP 09/28/18 Benzonatate* (Benzonatate*) 100 Mg Capsule, 100 MG PO TID, #30 CAP Prov:ROSA M WELLS NP 09/28/18 Acetaminophen* (Tylophen*) 500 Mg Capsule, 1 CAP PO Q6H PRN for PAIN AND OR ELEVATED TEMP, #20 CAP Prov:RAFFY DELA CRUZ MD 09/20/18 Discontinued Scripts Dextromethorphan Hb-Promethazine Hcl* (Promethazine DM* Syrup) 473 Ml Syrup, 5 ML PO Q6 PRN for COUGH for 5 Days, ML Prov:RAFFY DELA CRUZ MD 09/20/18 Amoxicillin* (Amoxicillin*) 500 Mg Cap, 500 MG PO TID for 10 Days, CAP Prov:RAFFY DELA CRUZ MD 09/20/18 Follow-up Plan Follow up with primary care physician in 1 week. Primary Care Provider Not On Staff Doctor Pending Labs Laboratory Tests Test 09/28/18 05:14 Blood Urea Nitrogen 9 mg/dl (7-20) Creatinine 0.55 mg/dl (0.44-1.00) ROSA M WELLS NP September 28, 2018 10:36
[2018-09-28] MEDS: VANCOMYCIN 500 MG (PMX) 100 ML IVPB SCH (12:22)
== END 2018-09-28 18:20 | disposition home or self-care (01) | DRG 872 ==
LOC: E/R 18:15 → 6WM 19:14
PROVIDERS: ADMIT Internal Medicine; ATTEND Internal Medicine
DX: A41.9 Sepsis, unspecified organism (principal); J45.41 Moderate persistent asthma with (acute) exacerbation; T70.0XXA Otitic barotrauma, initial encounter; W94.0XXA Exposure to prolonged high air pressure, initial encounter; B99.9 Unspecified infectious disease; J06.9 Acute upper respiratory infection, unspecified
CPT/HCPCS: 36415; 71045; 80053; 81001; 82565; 83605; 83690; 83735; 84484; 84520; 85025; 85610; 85730; 87070; 87086; 93005; 94644; 96374; 96375; J1644; J1956; J2405; J2765; J2930; J3370; J7030